=== PATIENT | male | born 1965 | race Caucasian/White ===

== ENCOUNTER → 2016-11-20 | Outpatient (CLI) | payer BC, OTHER ==
--- NOTE | 2016-11-20 07:49 | ECGEPIP ---
Stationary ECG Study [facility] Test Date: 2016-11-20 Pat Name: JEWEL HARMAN Department: Room: - Gender: M Senior Account Clerk: : 1965 Requested By: Terry Pearce Order Number: [id number] Reading MD: Mary Heller Measurements Intervals [place] Rate: 54 P: 43 SD: 171 QRS: 30 QRSD: 99 T: 5 QT: 411 QTc: 393 Interpretive Statements SINUS BRADYCARDIA similar to 03/27/15 Electronically Signed On 11-20-2016 7:49:49 EST by Mary Heller
[2016-11-20 08:10] LABS: MEAN CORPUSCULAR HEMOGLOBIN 30.1 pg (27.0-33.0); MEAN CORPUSCULAR HGB CONC 33.9 g/dl (32.0-36.5); MEAN CORPUSCULAR VOLUME 88.7 fl (80.0-96.0); RED CELL DISTRIBUTION WIDTH 12.4 % (11.5-14.5); WHITE BLOOD COUNT 6.2 K/mm3 (4.0-10.0)
--- NOTE | 2016-11-20 08:15 | REP ---
Chest x-ray: Two views. History: Anemia . Comparison study: March 27, 2015 . Findings: The lungs are well inflated and free of infiltrate. The pleural angles are sharp. The heart size is normal. Pulmonary vasculature is not increased. No significant bony abnormality is seen. Impression: Negative chest x-ray. Signed by Dominick Rebollar MD 11/20/2016 08:07 A
[2016-11-20 08:42] LABS: ALBUMIN 3.7 GM/DL (3.2-5.2); ALBUMIN/GLOBULIN RATIO 1.32 (1.00-1.93); ALKALINE PHOSPHATASE 83 U/L (45-117); ALT/SGPT 87 U/L (12-78); ANION GAP 6 MEQ/L (8-16); AST/SGOT 59 U/L (15-37); BILIRUBIN,TOTAL 0.6 MG/DL (0.2-1.0); BLOOD UREA NITROGEN 27 MG/DL (7-18); CALCIUM LEVEL 8.8 MG/DL (8.5-10.1); CARBON DIOXIDE LEVEL 29 MEQ/L (21-32); CHLORIDE LEVEL 107 MEQ/L (98-107); CHOLESTEROL LEVEL 227 MG/DL (<200); CREATININE FOR GFR 1.19 MG/DL (0.70-1.30); FREE T4 0.85 NG/DL (0.76-1.46); GLOMERULAR FILTRATION RATE > 60.0 (>56); GLUCOSE, FASTING 93 MG/DL (70-105); POTASSIUM SERUM 4.5 MEQ/L (3.5-5.1); SODIUM LEVEL 142 MEQ/L (136-145); TOTAL PROTEIN 6.5 GM/DL (6.4-8.2); TRIGLYCERIDES LEVEL 122 MG/DL (<150)
== END ==
LOC: M LAB 07:23
PROVIDERS: ATTEND Family Medicine
DX: D64.9 Anemia, unspecified (principal); R53.83 Other fatigue

== ENCOUNTER → 2017-04-15 | Outpatient (REF) | payer OTHER | LOC: M LAB REF 13:05 | PROVIDERS: ATTEND Physician Assistant | DX: R19.7 Diarrhea, unspecified (principal) ==

== ENCOUNTER 2017-11-04 09:23 | Day surgery (SDC) | payer BC, OTHER ==
[2017-11-04] MEDS: NS 1,000 ML IV (09:45)
[2017-11-04] MEDS ORDERED: LIDOCAINE 2% MDV 20 ML VIAL As Ordered (10:42)
[2017-11-04] MEDS ORDERED: PROPOFOL 200 MG/20 ML VIAL As Ordered (10:42)
== END 2017-11-04 11:26 | disposition home or self-care (01) ==
LOC: M OPP 09:23
DX: R10.13 Epigastric pain (principal); K44.9 Diaphragmatic hernia without obstruction or gangrene; K31.89 Other diseases of stomach and duodenum; R19.4 Change in bowel habit; R19.5 Other fecal abnormalities; E78.00 Pure hypercholesterolemia, unspecified; Z91.89 Other specified personal risk factors, not elsewhere classified
CPT/HCPCS: 45378

== ENCOUNTER → 2019-03-16 | Outpatient (REF) | payer OTHER ==
[2019-03-16 14:35] LABS: CHLAMYDIA DNA AMPLIFICATION NEGATIVE (NEGATIVE); GC DNA AMPLIFICATION NEGATIVE (NEGATIVE)
== END ==
LOC: M LAB REF 12:19
PROVIDERS: ATTEND Physician Assistant
DX: N41.0 Acute prostatitis (principal)

== ENCOUNTER 2019-05-06 14:59 | Emergency (ER) | payer BC, OTHER ==
[~2019-05-06] VITALS: Ht 175.3 cm; Wt 83.2 kg
--- NOTE | 2019-05-06 15:51 | REP ---
Portable chest, single AP view with the patient upright, 03:32 p.m.: Comparison is 11/20/2016, PA and lateral views. The lung mckeon are clear. The cardiac size is normal. The mel, mediastinum, and skeletal structures are unremarkable. Impression: Negative portable chest. There is no interval change Electronically Signed by Yusuf Huntley MD 05/06/2019 03:43 P
[2019-05-06 16:22] LABS: BASO % 0.5 % (0.0-1.0); EOS % 0.5 % (0.0-3.0); LYMPH # 1.7 10^3/uL (1.5-4.5); LYMPH % 28.3 % (24.0-44.0); MEAN CORPUSCULAR HEMOGLOBIN 29.8 pg (27.0-33.0); MEAN CORPUSCULAR HGB CONC 34.1 g/dl (32.0-36.5); MEAN CORPUSCULAR VOLUME 87.2 fl (80.0-96.0); MONO # 0.4 10^3/uL (0.0-0.8); MONO % 6.5 % (0.0-5.0); NEUTROPHILS # 3.9 10^3/uL (1.8-7.7); NEUTROPHILS % 63.9 % (36.0-66.0); PLATELET COUNT, AUTOMATED 194 10^3/uL (150-450); WHITE BLOOD COUNT 6.2 10^3/uL (4.0-10.0)
[2019-05-06 16:57] LABS: ALBUMIN 3.8 GM/DL (3.2-5.2); ALT/SGPT 58 U/L (12-78); BILIRUBIN,DIRECT 0.1 MG/DL (0.0-0.2); BILIRUBIN,TOTAL 0.8 MG/DL (0.2-1.0); BLOOD UREA NITROGEN 20 MG/DL (7-18); CARBON DIOXIDE LEVEL 28 MEQ/L (21-32); CHLORIDE LEVEL 109 MEQ/L (98-107); CK-MB VALUE MASS 2.9 NG/ML (<3.6); CPK CREATINE PHOSPHOKINASE 313 U/L (39-308); CREATININE FOR GFR 1.21 MG/DL (0.70-1.30); GLOMERULAR FILTRATION RATE > 60.0 (>56); GLUCOSE, FASTING 77 MG/DL (70-100); LIPASE 120 U/L (73-393); MB/CK RELATIVE INDEX 0.93 (< OR =4); POTASSIUM SERUM 4.5 MEQ/L (3.5-5.1); SODIUM LEVEL 141 MEQ/L (136-145); TOTAL PROTEIN 6.9 GM/DL (6.4-8.2); TROPONIN I 0.02 NG/ML (< 0.10)
[2019-05-06 20:26] LABS: CK-MB VALUE MASS 2.6 NG/ML (<3.6); CPK CREATINE PHOSPHOKINASE 265 U/L (39-308); MB/CK RELATIVE INDEX 0.98 (< OR =4); TROPONIN I < 0.02 NG/ML (< 0.10)
[2019-05-06 21:25] VITALS: BP 123/77
--- NOTE | 2019-05-07 21:13 | ECGEPIP ---
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
--- NOTE | 2019-05-07 21:17 | ECGEPIP ---
[facility] - ED Test Date: 2019-05-06 Pat Name: JEWEL HARMAN Department: Room: - Gender: Male Call Center Operations Manager: : 1965 Requested By: Shreyas Vasquez Order Number: [id number] Reading MD: Hillary Marquez Measurements Intervals [place] Rate: 59 P: 42 HI: 176 QRS: 11 QRSD: 98 T: 10 QT: 414 QTc: 411 Interpretive Statements SINUS BRADYCARDIA DECREASED RATE 05/06/19 Electronically Signed on 05-07-2019 21:17:02 EDT by Hillary Marquez
== END 2019-05-06 21:30 | disposition home or self-care (01) ==
LOC: EDBD 14:59 → M ED 14:59
DX: R07.89 Other chest pain (principal); R06.02 Shortness of breath

== ENCOUNTER → 2019-05-15 | Outpatient (REF) | payer OTHER ==
[2019-05-15 14:26] LABS: CHOLESTEROL LEVEL 297 MG/DL (<200); CHOLESTEROL RISK RATIO 7.425 (<5); HDL CHOLESTEROL 40 MG/DL (>40); LDL CHOLESTEROL 196 MG/DL (<100); NON-HDL-C 257 MG/DL; TRIGLYCERIDES LEVEL 303 MG/DL (<150)
[2019-05-15 14:36] LABS: HEMOGLOBIN A1c 5.7 %
[2019-05-15 15:09] LABS: HIV 1&2 SCREEN CENTAUR NEGATIVE (NEGATIVE)
[2019-05-15 15:51] LABS: CHLAMYDIA DNA AMPLIFICATION NEGATIVE (NEGATIVE); GC DNA AMPLIFICATION NEGATIVE (NEGATIVE)
== END ==
LOC: M SFHCPLAZ 11:56
PROVIDERS: ATTEND Family Medicine
DX: Z11.3 Encounter for screening for infections with a predominantly sexual mode of transmission (principal); Z11.4 Encounter for screening for human immunodeficiency virus [HIV]; Z11.59 Encounter for screening for other viral diseases; Z12.5 Encounter for screening for malignant neoplasm of prostate; Z13.1 Encounter for screening for diabetes mellitus; E78.2 Mixed hyperlipidemia
CPT/HCPCS: 36415; 80061; 83036; 86780; 87389; 87491; 87591; G0103; G0472

== ENCOUNTER → 2019-06-15 | Outpatient (CLI) | payer BC, OTHER ==
--- NOTE | 2019-06-15 10:25 | REP ---
Clinical: Mid back pain Technique: AP, lateral, and swimmers views. Findings: Alignment and kyphosis is maintained. Vertebral bodies intact. No acute fracture / compression injury or subluxation. No degenerative changes. Paravertebral soft tissues are normal. Impression: Normal thoracic spine series. Electronically Signed by Darci Mabry MD 06/15/2019 10:17 A
== END ==
LOC: M WUC 10:01
PROVIDERS: ATTEND Chiropractor
DX: M54.5 Low back pain (principal)

== ENCOUNTER → 2020-10-22 | Outpatient (CLI) | payer SELFPAY | LOC: M LABSMTC 14:14 | PROVIDERS: ATTEND Pediatrics | DX: Z20.822 Contact with and (suspected) exposure to COVID-19 (principal) ==

== ENCOUNTER → 2020-10-31 | Outpatient (CLI) | payer SELFPAY | LOC: M LABSMTC 10:22 | PROVIDERS: ATTEND Pediatrics | DX: Z20.822 Contact with and (suspected) exposure to COVID-19 (principal) ==

== ENCOUNTER → 2021-07-08 | Outpatient (CLI) | payer BC, OTHER ==
[2021-07-08 15:16] LABS: BASO # 0.1 10^3/uL (0.0-0.2); BASO % 1.1 % (0.0-1.0); EOS # 0.1 10^3/uL (0.0-0.5); EOS % 1.6 % (0.0-3.0); HEMATOCRIT 43.3 % (42.0-52.0); HEMOGLOBIN 14.4 g/dl (13.5-17.5); LYMPH # 2.6 10^3/uL (1.5-5.0); LYMPH % 45.5 % (24.0-44.0); MEAN CORPUSCULAR HEMOGLOBIN 29.1 pg (27.0-33.0); MEAN CORPUSCULAR HGB CONC 33.3 g/dl (32.0-36.5); MEAN CORPUSCULAR VOLUME 87.7 fl (80.0-96.0); MONO # 0.4 10^3/uL (0.0-0.8); MONO % 6.6 % (2.0-8.0); NEUTROPHILS # 2.5 10^3/uL (1.5-8.5); NEUTROPHILS % 44.8 % (36.0-66.0); PLATELET COUNT, AUTOMATED 250 10^3/uL (150-450); RED BLOOD COUNT 4.94 10^6/uL (4.30-6.10); WHITE BLOOD COUNT 5.6 10^3/uL (4.0-10.0)
[2021-07-08 15:54] LABS: ALBUMIN 3.8 GM/DL (3.2-5.2); ALT/SGPT 41 U/L (12-78); BILIRUBIN,TOTAL 0.9 MG/DL (0.2-1.0); BLOOD UREA NITROGEN 15 MG/DL (7-18); CALCIUM LEVEL 9.2 MG/DL (8.5-10.1); CARBON DIOXIDE LEVEL 29 MEQ/L (21-32); CHLORIDE LEVEL 108 MEQ/L (98-107); CHOLESTEROL LEVEL 294 MG/DL (<200); CHOLESTEROL RISK RATIO 7.736 (<5); CREATININE FOR GFR 1.13 MG/DL (0.70-1.30); GLOMERULAR FILTRATION RATE > 60.0 (>56); GLUCOSE, FASTING 93 MG/DL (70-100); HDL CHOLESTEROL 38 MG/DL (>40); LDL CHOLESTEROL 214 MG/DL (<100); LIPASE 87 U/L (73-393); NON-HDL-C 256 MG/DL; POTASSIUM SERUM 5.3 MEQ/L (3.5-5.1); SODIUM LEVEL 140 MEQ/L (136-145); TOTAL PROTEIN 6.9 GM/DL (6.4-8.2); TRIGLYCERIDES LEVEL 210 MG/DL (<150)
== END ==
LOC: M PLALAB 12:09
PROVIDERS: ATTEND Family Medicine
DX: R19.7 Diarrhea, unspecified (principal); E78.2 Mixed hyperlipidemia; Z12.5 Encounter for screening for malignant neoplasm of prostate; R10.10 Upper abdominal pain, unspecified
CPT/HCPCS: 36415; 80053; 80061; 83690; 85025; G0103

== ENCOUNTER → 2021-07-24 | Outpatient (CLI) | payer BC, OTHER ==
[2021-07-24 10:38] LABS: BLOOD UREA NITROGEN 29 MG/DL (7-18); CALCIUM LEVEL 9.1 MG/DL (8.5-10.1); CARBON DIOXIDE LEVEL 27 MEQ/L (21-32); CHLORIDE LEVEL 109 MEQ/L (98-107); GLOMERULAR FILTRATION RATE > 60.0 (>56); GLUCOSE, FASTING 95 MG/DL (70-100); POTASSIUM SERUM 4.4 MEQ/L (3.5-5.1); SODIUM LEVEL 139 MEQ/L (136-145)
== END ==
LOC: M WUC 08:55
PROVIDERS: ATTEND Family Medicine
DX: E78.2 Mixed hyperlipidemia (principal)

== ENCOUNTER 2022-03-02 06:20 | Emergency (ER) | payer BC, OTHER ==
[~2022-03-02] VITALS: Ht 175.3 cm; Wt 88.4 kg
[2022-03-02] MEDS: METOPROLOL 5 MG/5 ML VIAL IV SCH ×5 (06:45→08:03)
[2022-03-02] MEDS ORDERED: NS 1,000 ML IV ONE (06:55)
[2022-03-02 06:58] LABS: BASO # 0.1 10^3/uL (0.0-0.2); BASO % 0.8 % (0.0-1.0); EOS # 0.1 10^3/uL (0.0-0.5); EOS % 1.8 % (0.0-3.0); HEMATOCRIT 45.1 % (42.0-52.0); HEMOGLOBIN 15.5 g/dl (13.5-17.5); LYMPH # 2.8 10^3/uL (1.5-5.0); LYMPH % 42.3 % (24.0-44.0); MEAN CORPUSCULAR HEMOGLOBIN 29.7 pg (27.0-33.0); MEAN CORPUSCULAR HGB CONC 34.4 g/dl (32.0-36.5); MEAN CORPUSCULAR VOLUME 86.4 fl (80.0-96.0); MONO # 0.6 10^3/uL (0.0-0.8); MONO % 8.7 % (2.0-8.0); NEUTROPHILS # 3.1 10^3/uL (1.5-8.5); NEUTROPHILS % 46.2 % (36.0-66.0); PLATELET COUNT, AUTOMATED 246 10^3/uL (150-450); RED BLOOD COUNT 5.22 10^6/uL (4.30-6.10); WHITE BLOOD COUNT 6.7 10^3/uL (4.0-10.0)
[2022-03-02] MEDS ORDERED: ASPIRIN 81 MG CHEW TABLET PO ONE (07:00)
[2022-03-02 07:07] LABS: INR 0.98; PROTHROMBIN TIME 13.4 SECONDS (12.7-14.5)
[2022-03-02 07:08] LABS: PARTIAL THROMBOPLASTIN TIME 26.4 SECONDS (25.9-37.0)
[2022-03-02 07:27] LABS: CK-MB VALUE MASS 4.7 NG/ML (<3.6); MB/CK RELATIVE INDEX 1.67 (< OR =4)
[2022-03-02 07:32] LABS: ALBUMIN 3.6 GM/DL (3.2-5.2); ALT/SGPT 61 U/L (12-78); BILIRUBIN,DIRECT 0.1 MG/DL (0.0-0.2); BILIRUBIN,TOTAL 0.6 MG/DL (0.2-1.0); BLOOD UREA NITROGEN 22 MG/DL (7-18); CALCIUM LEVEL 9.6 MG/DL (8.5-10.1); CARBON DIOXIDE LEVEL 26 MEQ/L (21-32); CHLORIDE LEVEL 110 MEQ/L (98-107); CREATININE FOR GFR 1.18 MG/DL (0.70-1.30); GLOMERULAR FILTRATION RATE > 60.0 (>56); GLUCOSE, FASTING 109 MG/DL (70-100); LIPASE 139 U/L (73-393); MAGNESIUM LEVEL 2.2 MG/DL (1.8-2.4); NT-PRO BNP 662 PG/ML (<125); POTASSIUM SERUM 4.9 MEQ/L (3.5-5.1); SODIUM LEVEL 144 MEQ/L (136-145); TOTAL PROTEIN 6.9 GM/DL (6.4-8.2)
[2022-03-02 08:21] LABS: CK-MB VALUE MASS 4.1 NG/ML (<3.6); MB/CK RELATIVE INDEX 1.6 (< OR =4)
[2022-03-02] MEDS ORDERED: FLECAINIDE 50MG TABLET PO STA ×2 (08:39→10:17)
[2022-03-02] MEDS ORDERED: ENOXAPARIN 100MG/1ML SYRINGE (J1650 PER 10MG) SC ONE (08:40)
[2022-03-02 10:25] LABS: CK-MB VALUE MASS 3.9 NG/ML (<3.6); MB/CK RELATIVE INDEX 1.81 (< OR =4)
[2022-03-02 14:00] VITALS: BP 100/63
[2022-03-02] MEDS ORDERED: ASPI81TA26 PO (14:22)
== END 2022-03-02 14:37 | disposition home or self-care (01) ==
LOC: M ED 06:20
DX: I48.0 Paroxysmal atrial fibrillation (principal); I48.91 Unspecified atrial fibrillation
CPT/HCPCS: 71045; 80048; 80076; 82550; 82553; 83690; 83735; 83880; 84439; 84443; 84484; 85025; 85610; 85730; 93005; 93041; 94760; 96361; 96372; 96374; 99285; J1650

== ENCOUNTER → 2022-03-06 | Outpatient (CLI) | payer BC, OTHER ==
[~2022-03-06] MED LIST: ASPI81TA26 PO
[2022-03-06 11:33] LABS: CHOLESTEROL RISK RATIO 7.243 (<5)
== END ==
LOC: M WUC 08:24
PROVIDERS: ATTEND Family Medicine
DX: E78.2 Mixed hyperlipidemia (principal)

== ENCOUNTER → 2023-11-25 | Outpatient (CLI) | payer BC, OTHER ==
[2023-11-25 15:01] LABS: BASO # 0.1 10^3/uL (0.0-0.2); BASO % 0.9 % (0.0-1.0); EOS # 0.1 10^3/uL (0.0-0.5); EOS % 1.3 % (0.0-3.0); HEMATOCRIT 46.1 % (42.0-52.0); HEMOGLOBIN 15.2 g/dl (13.5-17.5); MEAN CORPUSCULAR HEMOGLOBIN 29.3 pg (27.0-33.0); MONO # 0.6 10^3/uL (0.0-0.8); MONO % 8.5 % (2.0-8.0); NEUTROPHILS # 3.3 10^3/uL (1.5-8.5); NEUTROPHILS % 47.2 % (36.0-66.0); PLATELET COUNT, AUTOMATED 269 10^3/uL (150-450); RED BLOOD COUNT 5.18 10^6/uL (4.30-6.10)
[2023-11-25 15:20] LABS: HEMOGLOBIN A1c 5.3 % (4.0-6.0)
[2023-11-25 15:27] LABS: PSA SCREENING 0.56 NG/ML (< 4.00)
[2023-11-25 15:30] LABS: ALBUMIN 4.3 G/DL (3.2-5.2); ALKALINE PHOSPHATASE 63 U/L (46-116); ALT/SGPT 49 U/L (7.0-40); AST/SGOT 27 U/L (<34); BLOOD UREA NITROGEN 29 MG/DL (9-23); CALCIUM LEVEL 9.5 MG/DL (8.5-10.1); CARBON DIOXIDE LEVEL 31 MMOL/L (20-31); CHLORIDE LEVEL 105 MMOL/L (98-107); CHOLESTEROL LEVEL 318 MG/DL (<200); CHOLESTEROL RISK RATIO 6.82 (<5); CREATININE FOR GFR 1.09 MG/DL (0.70-1.30); GLOMERULAR FILTRATION RATE > 60.0 (>56); GLUCOSE, FASTING 78 MG/DL (60-100); HDL CHOLESTEROL 46.6 MG/DL (>40); LDL CHOLESTEROL 246.2 MG/DL (<100); NON-HDL-C 271.4 MG/DL; PHOSPHORUS LEVEL 3.8 MG/DL (2.5-4.9); POTASSIUM SERUM 4.7 MMOL/L (3.5-5.1); SODIUM LEVEL 139 MMOL/L (136-145); TOTAL PROTEIN 7.3 G/DL (5.7-8.2); TRIGLYCERIDES LEVEL 126 MG/DL (<150)
[2023-11-25 15:31] LABS: TOTAL 25(OH) VITAMIN D 32.4 NG/ML (20.0-100.0)
== END ==
LOC: M PLALAB 11:31
PROVIDERS: ATTEND Physician Assistant
DX: Z00.00 Encounter for general adult medical examination without abnormal findings (principal); E78.2 Mixed hyperlipidemia; Z13.1 Encounter for screening for diabetes mellitus; Z12.5 Encounter for screening for malignant neoplasm of prostate; K90.41 Non-celiac gluten sensitivity
CPT/HCPCS: 36415; 80053; 80061; 80069; 82306; 83036; 85025; 86003; 86364; G0103

== ENCOUNTER → 2024-02-01 | Outpatient (REF) | payer BC | LOC: M SFHCPLAZ 13:43 | PROVIDERS: ATTEND Physician Assistant Medical | DX: J01.80 Other acute sinusitis (principal) ==

== ENCOUNTER → 2024-03-10 | Outpatient (CLI) | payer BC | LOC: M RAD 07:45 | PROVIDERS: ATTEND Chiropractor | DX: M54.40 Lumbago with sciatica, unspecified side (principal); M47.816 Spondylosis without myelopathy or radiculopathy, lumbar region; M51.26 Other intervertebral disc displacement, lumbar region ==

== ENCOUNTER → 2024-05-29 | Outpatient (CLI) | payer BC, OTHER ==
[2024-05-29 09:48] LABS: BASO % 0.7 % (0.0-1.0); EOS # 0.1 10^3/uL (0.0-0.5); EOS % 1.8 % (0.0-3.0); HEMOGLOBIN 14.2 g/dl (13.5-17.5); LYMPH # 2.2 10^3/uL (1.5-5.0); MEAN CORPUSCULAR HEMOGLOBIN 30.4 pg (27.0-33.0); MEAN CORPUSCULAR HGB CONC 34.6 g/dl (32.0-36.5); MEAN CORPUSCULAR VOLUME 87.8 fl (80.0-96.0); MONO # 0.3 10^3/uL (0.0-0.8); MONO % 5.2 % (2.0-8.0); NEUTROPHILS # 2.9 10^3/uL (1.5-8.5); NEUTROPHILS % 52.1 % (36.0-66.0); PLATELET COUNT, AUTOMATED 231 10^3/uL (150-450); RED BLOOD COUNT 4.67 10^6/uL (4.30-6.10)
[2024-05-29 10:35] LABS: ALBUMIN 3.9 G/DL (3.2-5.2); ALKALINE PHOSPHATASE 65 U/L (46-116); ALT/SGPT 64 U/L (7.0-40); AST/SGOT 38 U/L (<34); BLOOD UREA NITROGEN 26 MG/DL (9-23); CALCIUM LEVEL 9.3 MG/DL (8.5-10.1); CARBON DIOXIDE LEVEL 29 MMOL/L (20-31); CHLORIDE LEVEL 106 MMOL/L (98-107); CREATININE FOR GFR 1.02 MG/DL (0.70-1.30); GLOMERULAR FILTRATION RATE > 60.0 (>56); GLUCOSE, FASTING 96 MG/DL (60-100); POTASSIUM SERUM 4.4 MMOL/L (3.5-5.1); SODIUM LEVEL 137 MMOL/L (136-145); TOTAL PROTEIN 6.7 G/DL (5.7-8.2)
[2024-05-29 10:37] LABS: IMMUNOGLOBULIN E 34.1 IU/ML (0-378); THYROID STIMULATING HORMONE 1.953 uIU/ML (0.55-4.78)
[2024-05-30 09:27] LABS: WHITE BLOOD COUNT 5.6 10^3/uL (4.0-10.0)
== END ==
LOC: M LAB 08:54
PROVIDERS: ATTEND Allergy & Immunology
DX: J30.0 Vasomotor rhinitis (principal); R53.81 Other malaise; J30.89 Other allergic rhinitis

== ENCOUNTER → 2025-07-16 | Outpatient (CLI) | payer BC ==
[~2025-07-16] MED LIST changes: +CARD60TA3 PO; +DIGO0.123 PO; +METO1TAB87 PO; +PROHANCE 279.3MG/ML 15ML VIAL ONE; +PROHANCE 279.3MG/ML 5ML VIAL ONE
== END ==
LOC: M PLAIMG 12:08
PROVIDERS: ATTEND Nurse Practitioner Family
DX: Z80.0 Family history of malignant neoplasm of digestive organs (principal)
CPT/HCPCS: 74183; A9576